=== PATIENT | female | born 1975 | race Caucasian/White ===

== ENCOUNTER 2024-10-28 17:33 | Emergency (ER) | payer BC ==
[2024-10-28] MEDS ORDERED: Tranexamic Acid 1,000 MG/10 ML VIAL ONE ×3 (19:37→21:51)
[2024-10-28] MEDS ORDERED: Lidocaine 1% PF 5 ML VIAL ONE (19:38)
[2024-10-28] MEDS ORDERED: Lidocaine 1% MPF 2 ML VIAL ONE (20:28)
[2024-10-28] MEDS ORDERED: Lorazepam 1 MG TAB ONE (21:36)
[2024-10-28] MEDS ORDERED: cloNIDine 0.1 MG TAB ONE (21:36)
[2024-10-28] MEDS ORDERED: HYDROcodone/Acetaminophen 10/325 mg Tablet ONE (21:37)
[2024-10-28] MEDS ORDERED: Morphine 4 MG/ML VIAL ONE ×2 (21:55→23:16)
[2024-10-28] MEDS ORDERED: Ondansetron PF 4 MG/2 ML Vial ONE (21:56)
[2024-10-28] MEDS ORDERED: Oxymetazoline HCl 0.05% (30 ML BOT) ONE (21:56)
[2024-10-28] MEDS ORDERED: hydrALAZINE 20 MG/ML VIAL ONE (21:56)
[2024-10-28] MEDS ORDERED: Lorazepam 2 MG/ML VIAL ONE (22:05)
[2024-10-28] MEDS ORDERED: niCARdipine 25 MG/10 ML SDV ONE (22:51)
[2024-10-28 23:25] LABS: #Basophils Less than 0.03 10x3/uL (0.0-0.2); %Basophils 0.2 % (0.0-1.0); %Eosinophils 1.7 % (0.0-10.0); %Lymphocytes 17.6 % (21.0-51.0); %Monocytes 4.4 % (0.0-10.0); %Neutrophils 75.7 % (42.0-75.0); Hematocrit 41.8 % (36.0-47.0); Hemoglobin 14.1 g/dL (12.0-16.0); Mean Corpuscular HGB CONC 33.7 g/dL (32.0-36.0); Mean Corpuscular Hemoglobin 30.5 pg (27.0-31.0); Mean Corpuscular Volume 90.5 fL (78.0-98.0); Mean Platelet Volume 10.2 fL (7.4-10.4); Platelet Count 266 10x3/uL (130-400); RBC Distribution Width 12.8 % (11.5-14.5); Red Blood Cell (RBC) Count 4.62 mill/uL (4.20-5.40)
[2024-10-28 23:40] LABS: PTT 27.4 sec (22.9-36.1); Prothrombin Time 13.6 sec (12.0-14.7)
[2024-10-28 23:44] LABS: ALT (SGPT) 20 U/L (8-55); AST (SGOT) 20 U/L (5-34); Albumin 4.2 g/dL (3.5-5.0); Alkaline Phosphatase 85 U/L (40-110); Anion Gap 13 mmol/L (10-20); BUN (Urea Nitrogen) 15 mg/dL (9.8-20.1); Bilirubin, Total 0.4 mg/dL (0.2-1.2); Calc. Creatinine Clearance 0 mL/min (70-130); Calcium 8.7 mg/dL (7.8-10.44); Carbon Dioxide 21 mmol/L (22-29); Chloride 108 mmol/L (98-107); Estimated GFR 107; Globulin 4.2 g/dL (2.4-3.5); Glucose 134 mg/dL (70-105); Potassium 3.5 mmol/L (3.5-5.1); Protein, Total 8.4 g/dL (6.0-8.3); Sodium 138 mmol/L (136-145)
[2024-10-28 23:46] LABS: Troponin I Less than 0.010 ng/mL (< 0.028)
== END 2024-10-29 02:31 | disposition short-term general hospital (02) ==
LOC: ERS 17:33
DX: R04.0 Epistaxis (principal); I16.0 Hypertensive urgency
CPT/HCPCS: 30901; 36416; 71045; 80053; 84484; 85025; 85610; 85730; 93005; 96365; 96375; 96376; J0360; J2060; J2272; J2405